=== PATIENT | male | born 1990 | race Caucasian/White ===

== ENCOUNTER 2022-07-31 04:04 | Day surgery (SDC) | payer OTHER ==
[~2022-07-31] VITALS: Ht 177.8 cm; Wt 70.0 kg
[2022-07-31] VITALS (264 sets, daily range): BP systolic 79–149; BP diastolic 27–86
[2022-07-31 08:26] LABS: ALBUMIN 4.7 g/dL (3.2-5.0); ALKALINE PHOSPHATASE 69 u/l (38-126); ANION GAP 15 (6-22 (CALC)); BILIRUBIN, TOTAL 0.1 mg/dL (0.2-1.3); BUN 26 mg/dL (9-20); BUN/CREATININE RATIO 24 (12-20 (CALC)); CARBON DIOXIDE 27 mmol/l (22-30); CHLORIDE 99 mmol/l (95-108); CREATININE 1.1 mg/dL (0.7-1.3); GFR FOR AFR.AMER. > 60 ML/MIN (>=60 (CALC)); GFR OTHER RACES > 60 ML/MIN (>=60 (CALC)); POTASSIUM 4.6 mmol/l (3.5-5.1); SGOT/AST 95 u/l (17-59); SODIUM 136 mmol/l (137-146); TOTAL PROTEIN 7.7 g/dL (6.3-8.2)
[2022-07-31 08:46] LABS: BASO% 0.8 % (0-3); HEMATOCRIT 42.9 % (39.0-50.0); HEMOGLOBIN 13.8 g/dl (14.0-18.0); IMMATURE GRANULOCYTES 0.6 % (0.0-5.0); LYMPH% 25.2 % (15-41); MEAN CELL VOLUME 87.9 fL CALC (80.0-100.0); MEAN CORPUSCULAR HGB 28.3 pG CALC (26.0-32.0); MEAN CORPUSCULAR HGB CONC 32.2 g/dL CAL (32.0-36.0); MONO% 10.9 % (2-13); NEUT# 4.67 thou/uL (1.82-7.42); NEUT% 58.5 % (42-76); RED BLOOD COUNT 4.88 mill/uL (4.70-6.10); RED CELL DISTRI WIDTH 13.8 % (11.5-15.5)
[2022-07-31] MEDS ORDERED: CLONIDINE0.1 MG PO (15:56)
[2022-07-31] MEDS ORDERED: NALTREXONE50 MG PO (15:56)
[2022-07-31] MEDS ORDERED: KLONOPIN2 MG PO (15:57)
[2022-08-01 04:09] VITALS: BP 114/66
[2022-08-01 04:38] LABS: BASO% 0.1 % (0-3); HEMOGLOBIN 12.8 g/dl (14.0-18.0); IMMATURE GRANULOCYTES 1.1 % (0.0-5.0); LYMPH% 8.6 % (15-41); MEAN CELL VOLUME 85.9 fL CALC (80.0-100.0); MEAN CORPUSCULAR HGB 28.2 pG CALC (26.0-32.0); MEAN CORPUSCULAR HGB CONC 32.8 g/dL CAL (32.0-36.0); MONO% 2.1 % (2-13); NEUT# 9.39 thou/uL (1.82-7.42); NEUT% 88.1 % (42-76); RED BLOOD COUNT 4.54 mill/uL (4.70-6.10); RED CELL DISTRI WIDTH 14.3 % (11.5-15.5)
[2022-08-01 04:56] LABS: ALBUMIN 4.3 g/dL (3.2-5.0); ALKALINE PHOSPHATASE 65 u/l (38-126); ANION GAP 15 (6-22 (CALC)); BUN 23 mg/dL (9-20); BUN/CREATININE RATIO 19 (12-20 (CALC)); CARBON DIOXIDE 26 mmol/l (22-30); CHLORIDE 102 mmol/l (95-108); CREATININE 1.2 mg/dL (0.7-1.3); GFR FOR AFR.AMER. > 60 ML/MIN (>=60 (CALC)); GFR OTHER RACES > 60 ML/MIN (>=60 (CALC)); MAGNESIUM 2.4 mg/dL (1.6-2.3); POTASSIUM 4.5 mmol/l (3.5-5.1); SGOT/AST 103 u/l (17-59); SODIUM 138 mmol/l (137-146); TOTAL PROTEIN 6.8 g/dL (6.3-8.2)
[2022-08-01 05:03] LABS: BILIRUBIN, TOTAL 0.2 mg/dL (0.2-1.3)
[2022-08-01 08:09] VITALS: BP 101/43
[2022-08-01 12:16] VITALS: BP 115/63
== END 2022-08-01 16:43 | disposition home or self-care (01) | DRG 897 ==
LOC: ANR 04:04 → MS2 04:06 → ANR 09:00 → MS2 14:25 → ANR 08-01 16:43
PROVIDERS: ATTEND Anesthesiology Critical Care Medicine
DX: F11.20 Opioid dependence, uncomplicated (principal)
CPT/HCPCS: J0131; J2354; J3475